=== PATIENT | male | born 1950 | race African-American/Black ===

== ENCOUNTER 2016-08-12 22:36 | Inpatient (IN) | payer MEDICARE, BC ==
[~2016-08-12] VITALS: Ht 177.8 cm; Wt 99.0 kg
[~2016-08-12 22:36] MED LIST: ALLO100T PO; FOLI0.4T2 PO; INSU100I17 SQ; INSU100V8 SQ; LACT10SO PO; LACT10SO26 PO; MAGN400T3 PO; NALT50TA3 PO; OMEP20TA8 PO; OXYC5TAB PO; POT25TAB PO; PROP20TA PO; RIFA550T4 PO; RISP2TAB3 PO; SPIR25TA3 PO; THIA100T8 PO; TRAM50TA PO; [UNRECOGNIZED DRUG - CODE] PO
--- NOTE | 2016-08-12 22:39 | PHYS DOC ---
Past History Past Medical History: Alcoholism, Diabetes, Hypertension, Liver Disease Additional Past Medical Histor: prior hepatic encephalopathy Past Surgical History: Knee Replacement, Other Additional Past Surgical Histo: prior hernia surgery Smoking: Non-smoker Alcohol Use: Sober Drug Use: None Adult General Chief Complaint Chief Complaint: abdominal pain [facility] This is a pleasant 66-year-old male with history of hypertension, end-stage liver disease with ascites history of prior hepatic encephalopathy who presents today with abdominal pain that began earlier this afternoon. He describes the pain as dull and achy over most of his lower abdomen without fevers or chills. It is waxing and waning but never completely resolves. He feels nauseated but he has not vomited. He denies any diarrhea or loose stool. He denies any UTI symptoms or decreased urinary output. He normally gets his care from and has had a recent paracentesis with removal of 10 L of fluid from his abdomen one month ago. Pt. complaints of increased distention tonight. Pt. denies any passage of dark stools. Pt. denies any alcohol intake today. is at bedside. Pt. states he had this presentation before and it usually resolves with time. Pt. states his umbilicus hernia has been the cause of his problems in the past, but no one wants to fix it because of his medical problems with alcohol and alcoholic hepatitis and pancreatitis. He describes his pain as moderate at this time not worse with position, food, bowel movements. Review of Systems Review of Systems Constitutional: Denies fever or chills [] Eyes: Denies change in visual acuity, redness, or eye pain [] HENT: Denies nasal congestion or sore throat [] Respiratory: Denies cough or shortness of breath [] Cardiovascular: No additional information not addressed in HPI [] GI: He does complain of diffuse abdominal pain with nausea without vomiting or diarrhea or loose stools. : Denies dysuria or hematuria he does describe some urgency. Musculoskeletal: Denies back pain or joint pain [] Integument: Denies rash or skin lesions [] Neurologic: Denies headache, focal weakness or sensory changes [] Endocrine: Denies polyuria or polydipsia [] Allergies Allergies Allergies Coded Allergies Type Severity Reaction Last Updated Verified naltrexone Allergy Severe 02/12/16 No Physical Exam Physical Exam Patient's vital signs are blood pressure 136/92 saturations on percent room air afebrile at this time Constitutional: Well developed, he is cachectic but in no acute distress nontoxic in appearance. He is mildly jaundiced. HENT: Normocephalic, atraumatic, bilateral external ears normal, dry mucous membranes no oral exudates, nose normal. [] Eyes: PERRLA, EOMI, conjunctiva normal, no discharge. [] Neck: Normal range of motion, no tenderness, supple, no stridor. [] Cardiovascular:Heart rate regular rhythm, no murmur [] Lungs & Thorax: Bilateral breath sounds clear to auscultation [] Abdomen: His abdomen is distended patient has hyperactive bowel sounds with an umbilical hernia noted nonincarcerated nontender to palpation. Patient has no focal tenderness to palpation no guarding rebound or organomegaly that can be felt on physical exam. Patient has no pulsatile mass. There is no Franklin Valdez sign. Skin: Warm, dry, no erythema, no rash. [] Back: No tenderness, no CVA tenderness. [] Extremities: No tenderness, no cyanosis, no clubbing, ROM intact, no edema. [] Neurologic: Alert and oriented X 3, normal motor function, normal sensory function, no focal deficits noted. [] Psychologic: Affect normal, judgement normal, mood normal. [] Current Patient Data Lab Results Laboratory Tests Test 08/13/16 00:18 08/13/16 00:23 White Blood Count 5.5 x10^3/uL (4.0-11.0) Red Blood Count 3.15 x10^6/uL (4.30-5.70) L Hemoglobin 9.3 g/dL (13.0-17.5) L Hematocrit 28.1 % (39.0-53.0) L Mean Corpuscular Volume 89 fL (79-100) Mean Corpuscular Hemoglobin 30 pg (25-35) Mean Corpuscular Hemoglobin Concent 33 g/dL (31-37) Red Cell Distribution Width 17.3 % (11.5-14.5) H Platelet Count 72 x10^3/uL (140-400) L Neutrophils (%) (Auto) 75 % (31-73) H Lymphocytes (%) (Auto) 11 % (24-48) L Monocytes (%) (Auto) 10 % (0-9) H Eosinophils (%) (Auto) 3 % (0-3) Basophils (%) (Auto) 1 % (0-3) Neutrophils # (Auto) 4.1 x10^3uL (1.8-7.7) Lymphocytes # (Auto) 0.6 x10^3/uL (1.0-4.8) L Monocytes # (Auto) 0.5 x10^3/uL (0.0-1.1) Eosinophils # (Auto) 0.2 x10^3/uL (0.0-0.7) Basophils # (Auto) 0.1 x10^3/uL (0.0-0.2) Sodium Level 141 mmol/L (136-145) Potassium Level 3.3 mmol/L (3.5-5.1) L Chloride Level 108 mmol/L (98-107) H Carbon Dioxide Level 23 mmol/L (21-32) Anion Gap 10 (6-14) Blood Urea Nitrogen 12 mg/dL (8-26) Creatinine 1.6 mg/dL (0.7-1.3) H Estimated GFR (Cockcroft-Gault) 52.3 BUN/Creatinine Ratio 8 (6-20) Glucose Level 76 mg/dL (70-99) Calcium Level 8.6 mg/dL (8.5-10.1) Total Bilirubin 1.6 mg/dL (0.2-1.0) H Aspartate Amino Transferase (AST) 34 U/L (15-37) Alanine Aminotransferase (ALT) 21 U/L (16-63) Alkaline Phosphatase 130 U/L (46-116) H Ammonia 155 mcmol/L (11-34) H Troponin I Quantitative < 0.017 ng/mL (0-0.055) Total Protein 7.9 g/dL (6.4-8.2) Albumin 2.6 g/dL (3.4-5.0) L Albumin/Globulin Ratio 0.5 (1.0-1.7) L Lipase 346 U/L (73-393) Glucose (Fingerstick) 72 mg/dL (70-99) Laboratory Tests Test 08/13/16 00:18 08/13/16 00:23 White Blood Count 5.5 x10^3/uL (4.0-11.0) Red Blood Count 3.15 x10^6/uL (4.30-5.70) L Hemoglobin 9.3 g/dL (13.0-17.5) L Hematocrit 28.1 % (39.0-53.0) L Mean Corpuscular Volume 89 fL (79-100) Mean Corpuscular Hemoglobin 30 pg (25-35) Mean Corpuscular Hemoglobin Concent 33 g/dL (31-37) Red Cell Distribution Width 17.3 % (11.5-14.5) H Platelet Count 72 x10^3/uL (140-400) L Neutrophils (%) (Auto) 75 % (31-73) H Lymphocytes (%) (Auto) 11 % (24-48) L Monocytes (%) (Auto) 10 % (0-9) H Eosinophils (%) (Auto) 3 % (0-3) Basophils (%) (Auto) 1 % (0-3) Neutrophils # (Auto) 4.1 x10^3uL (1.8-7.7) Lymphocytes # (Auto) 0.6 x10^3/uL (1.0-4.8) L Monocytes # (Auto) 0.5 x10^3/uL (0.0-1.1) Eosinophils # (Auto) 0.2 x10^3/uL (0.0-0.7) Basophils # (Auto) 0.1 x10^3/uL (0.0-0.2) Ammonia 155 mcmol/L (11-34) H Glucose (Fingerstick) 72 mg/dL (70-99) EKG EKG [] EKG timed 11:52 PM 08/12/2016 demonstrates normal sinus rhythm with a heart rate of 77 left axis deviation with AK interval of 160 which is normal QRS which is normal 78 QTC is normal at 457. Patient has no ST segment T-wave changes consistent with acute coronary event. He's got a very low voltage on the lateral leads. EKG read by Dr. Cruz Radiology/Procedures Radiology/Procedures [] [address] [place] [id number] IMAGING REPORT Signed PATIENT: JOSE SANCHEZ ACCOUNT: [id number] : 1950 LOCATION: ER AGE: 66 SEX: M EXAM STATUS: REG ER ORD. PHYSICIAN: SOUMYA CRUZ MD REASON: diffuse abdominal pain PROCEDURE: CT ABDOMEN PELVIS WO CONTRAST CT scan of the abdomen and pelvis without contrast 08/12/2016 CLINICAL HISTORY: Diffuse abdominal pain and distention. TECHNIQUE: Unenhanced, contiguous, 3 mm axial sections were obtained through the abdomen and pelvis. One or more of the following individualized dose reduction techniques were utilized for this study: 1. Automated exposure control. 2. Adjustment of the mA and/or kV according to patient size. 3. Use of iterative reconstruction technique. FINDINGS: Comparison study is dated 02/25/2016. Images through the lung bases demonstrate minimal dependent subsegmental atelectasis bilaterally. The liver is small with a nodular contour consistent with cirrhosis. Several rounded low-attenuation lesions are seen scattered throughout both lobes of the liver which measure 5 mm to 1.2 cm in size. They are difficult to evaluate. They may represent cysts. They do not appear significantly changed. The spleen is within normal limits. Fullness of both adrenal glands is seen, left greater than right. Multiple nonobstructing calculi are seen scattered throughout both kidneys. These measure 2 to 5 mm in size. Low-attenuation lesions are seen scattered throughout both kidneys which measure 1 cm to 5.5 cm in size. These likely represent cysts. They are not significantly changed. The main pancreatic duct is dilated. Calcifications are seen throughout the pancreas consistent with chronic pancreatitis. No pancreatic pseudocyst is seen. Scattered atherosclerotic plaque formation is seen involving the abdominal aorta and its branches. The abdominal aorta tapers normally. A large amount of ascites is seen throughout the abdomen which has increased since the previous examination. The small bowel obstruction seen on previous examination has resolved. Air and stool seen throughout the colon. No free air is seen. Images through the pelvis demonstrate the urinary bladder distended with urine. The prostate gland is enlarged likely related to BPH. Calcifications are seen within the pelvis consistent with phleboliths. A large amount of ascites is seen within the pelvis. A large right inguinal hernia is seen which measures 10 cm in transverse diameter. It is distended with ascites. An old compression fracture of the T12 vertebral body is again seen. Degenerative changes are seen involving lower thoracic and throughout the lumbar spine and both hips. IMPRESSION: 1. Findings consistent with cirrhosis of the liver. 2. Chronic pancreatitis. 3. Large amount of ascites is seen throughout the abdomen and pelvis which has increased since the previous examination. Electronically signed by: Johnathon Martell MD (08/12/2016 11:49 PM) [facility] DICTATED AND SIGNED BY: JOHNATHON MARTLEL MD DATE: 08/12/16 2813 CC: SOUMYA CRUZ MD; CHRISTIANA MERAZ MD ~ Course & Med Decision Making Course & Med Decision Making Pertinent Labs and Imaging studies reviewed. (See chart for details) upon presentation patient has spontaneous belly pain and abdominal distention with history of ascites. We'll need to consent immediately for paracentesis and appropriate blood work looking for encephalopathy and end-stage renal disease. Patient will have a troponin completed EKG, CT of abdomen and pelvis after the paracentesis completed. Time is now 11:55 PM Patient tells me that their symptoms given during CC are improved. So far from his lab work his ammonia levels are elevated. Patient will still need paracentesis but he will go to the CAT scan at this time Time is now 12:50 AM Patient tells me that their symptoms given during CC are improved. We reviewed labs and radiology reports with patient and any family at bedside. It is apparent that patient will need to be transferred from our facility to [facility] for continued treatment for his ascites. It is also very obvious that his abdominal pain may be associated with SBP or spontaneous bacteria peritonitis. Patient had a paracentesis done at the bedside. His ascites fluid was sent for cell count and differential, LDH, protein, CBC and staining with culture. Procedure completed by Dr. Cruz at 12:40 AM was consented written and verbal consent by family at bedside. Preparation was chlorhexidine swabs over the right lower abdominal wall. Patient was recently supine position. We used 2% lidocaine with epinephrine in a local injection on the skin approximately 6 mL of lidocaine injected locally. Patient had been prepped with sterile presentation I placed a 22-gauge spinal needle 3 and half centimeter using a Z technique in a caudal position towards midline drying back as I went. Patient had 50 mL of relatively clear ascites fluid in nature drawn from the spinal needle without issue. I took those syringes and filled purple top, green top, anaerobic and aerobic culture and we sent the rest down to lab for continued evaluation. At this point I will give him a dose of lactulose as well as antibiotics empirically and transfer him to [facility]. []Biomedical Engineering Supervisor note: transfer head inspector and center marker called at of the service 12.56 am Consult called back at 12:56 Discussed the case I presented and they agreed with admission. Time of acceptance I spoke with triage nurse will find an accepting physician. They're presently And full in their facility but they will attempt to find a bed for this patient. They really could find he was being taken care of that at length with frequent visits. He will call him back with bed placement. Time is now 1: 05 AM [facility] called back at 1:20 AM I do apologize that they had no accepting physician and no bed space to accept this patient. They stated there are there were unavailable to take him 1. recheck in the morning when necessary was very apologetic. Her this information at 1:22 AM with the family and encouraged him to allow me to transfer him to [facility] with there at least was an interventional radiologist, a GI specialist that could manage his ascites and possible spontaneous bacterial peritonitis as suspected. His ammonia level is also elevated and he was suffering from mild hepatic encephalopathy. Although the family understood the limitations of being at this facility they were adamant that we did not transfer him yet. They have preferred to remain here at [facility] under the care of internal medicine physician and transfer tomorrow if bed space became available. IConsultant note: Paged on-call physician at 1:30 AM Biomedical Engineering Supervisor called at of the service return page at 1:31 AM Consult called back at 1:31 AM Discussed the case I presented and they agreed with admission. Time of acceptance 1:31 AM although accepting physician was somewhat confusing concern that the patient was not going to be older see any definitive therapy like paracentesis secondary to the fact we do not have the cable to hear over the weekends. I told him that I explained this to the family they were happy with limitations we had an willing to wait to see and transfer the morning. Patient was seen within a stable I reviewed laboratory work and plan with internal medicine physician accepting placement in the telemetry floor. Impression: SBP, abdominal pain, hepatic encephalopathy, hypertension. Disposition: Admission to the hospital after diagnostic paracentesis placed on antibiotics and lactulose. For transfer in the morning to once but available. I spent approximately 45-50 minutes working and engaged directly in the patient care providing critical care evaluation this includes but not limited to time spent engaged in work directly related to the individual patients care. I spent time at the bedside, reviewing test results, discussing the case with staff, documenting the medical record and time spent with EMS discussing specific treatment issues when the patient presented and during his evaluation. By the time patient was admitted cefoxitin was ordered urinalysis is still pending at this time Dragon Disclaimer Dragon Disclaimer This chart was dictated in whole or in part using Voice Recognition software in a busy, high-work load, and often noisy Emergency Department environment. It may contain unintended and wholly unrecognized errors or omissions. Departure Departure: Impression: Primary Impression: Ascites Additional Impressions: Cirrhosis Pain in the abdomen Metabolic encephalopathy Disposition: XFER SHT-TRM HOSP Condition: GUARDED Referrals: CHRISTIANA MERAZ MD (PCP) Problem Qualifiers SOUMYA CRUZ MD Aug 12, 2016 22:39
[2016-08-12] MEDS ORDERED: FURO-69 PO (22:57)
[2016-08-12] MEDS ORDERED: HYDROmorphone PF 1 MG/ML DISP.SYRIN IV/SQ PRN (23:00)
[2016-08-12] MEDS ORDERED: 0.9 % SODIUM CHLORIDE 10 ML DISP.SYRIN. IV PRN (23:00)
[2016-08-12] MEDS ORDERED: IV NORMAL SALINE 1,000ML 1,000 ML IV SCH (23:30)
[2016-08-12] MEDS ORDERED: ONDANSETRON PF 4 MG/2 ML VIAL. IV ONE (23:30)
--- NOTE | 2016-08-12 23:52 | RAD ---
CT scan of the abdomen and pelvis without contrast 08/12/2016 CLINICAL HISTORY: Diffuse abdominal pain and distention. TECHNIQUE: Unenhanced, contiguous, 3 mm axial sections were obtained through the abdomen and pelvis. One or more of the following individualized dose reduction techniques were utilized for this study: 1. Automated exposure control. 2. Adjustment of the mA and/or kV according to patient size. 3. Use of iterative reconstruction technique. FINDINGS: Comparison study is dated 02/25/2016. Images through the lung bases demonstrate minimal dependent subsegmental atelectasis bilaterally. The liver is small with a nodular contour consistent with cirrhosis. Several rounded low-attenuation lesions are seen scattered throughout both lobes of the liver which measure 5 mm to 1.2 cm in size. They are difficult to evaluate. They may represent cysts. They do not appear significantly changed. The spleen is within normal limits. Fullness of both adrenal glands is seen, left greater than right. Multiple nonobstructing calculi are seen scattered throughout both kidneys. These measure 2 to 5 mm in size. Low-attenuation lesions are seen scattered throughout both kidneys which measure 1 cm to 5.5 cm in size. These likely represent cysts. They are not significantly changed. The main pancreatic duct is dilated. Calcifications are seen throughout the pancreas consistent with chronic pancreatitis. No pancreatic pseudocyst is seen. Scattered atherosclerotic plaque formation is seen involving the abdominal aorta and its branches. The abdominal aorta tapers normally. A large amount of ascites is seen throughout the abdomen which has increased since the previous examination. The small bowel obstruction seen on previous examination has resolved. Air and stool seen throughout the colon. No free air is seen. Images through the pelvis demonstrate the urinary bladder distended with urine. The prostate gland is enlarged likely related to BPH. Calcifications are seen within the pelvis consistent with phleboliths. A large amount of ascites is seen within the pelvis. A large right inguinal hernia is seen which measures 10 cm in transverse diameter. It is distended with ascites. An old compression fracture of the T12 vertebral body is again seen. Degenerative changes are seen involving lower thoracic and throughout the lumbar spine and both hips. IMPRESSION: 1. Findings consistent with cirrhosis of the liver. 2. Chronic pancreatitis. 3. Large amount of ascites is seen throughout the abdomen and pelvis which has increased since the previous examination. Electronically signed by: Johnathon Martell MD (08/12/2016 11:49 PM) [place] [id number]
[2016-08-13 00:43] LABS: BASO # 0.1 x10^3/uL (0.0-0.2); BASO % 1 % (0-3); EOS # 0.2 x10^3/uL (0.0-0.7); EOS % 3 % (0-3); HEMATOCRIT 28.1 % (39.0-53.0); HEMOGLOBIN 9.3 g/dL (13.0-17.5); LYMPH # 0.6 x10^3/uL (1.0-4.8); LYMPH % 11 % (24-48); MEAN CORPUSCULAR HEMOGLOBIN 30 pg (25-35); MEAN CORPUSCULAR HGB CONC 33 g/dL (31-37); MEAN CORPUSCULAR VOLUME 89 fL (79-100); MONO # 0.5 x10^3/uL (0.0-1.1); MONO % 10 % (0-9); NEUT # 4.1 x10^3uL (1.8-7.7); NEUT % 75 % (31-73); PLATELET COUNT 72 x10^3/uL (140-400); RED BLOOD COUNT 3.15 x10^6/uL (4.30-5.70); RED CELL DISTRIBUTION WIDTH 17.3 % (11.5-14.5); WHITE BLOOD COUNT 5.5 x10^3/uL (4.0-11.0)
[2016-08-13 00:48] LABS: ALBUMIN 2.6 g/dL (3.4-5.0); ALBUMIN/GLOBULIN RATIO 0.5 (1.0-1.7); CALCIUM 8.6 mg/dL (8.5-10.1); CREATININE 1.6 mg/dL (0.7-1.3); GFR 52.3; POTASSIUM 3.3 mmol/L (3.5-5.1); TOTAL BILIRUBIN 1.6 mg/dL (0.2-1.0); TOTAL PROTEIN 7.9 g/dL (6.4-8.2)
[2016-08-13] MEDS ORDERED: LACTULOSE 20 GM/30 ML SOLUTION. ONE (01:05)
--- NOTE | 2016-08-13 01:07 | EKG ---
[address] [address] Test Date: 2016-08-12 Test Time: 23:52:35 Pat Name: JOSE SANCHEZ Department: Room: Gender: M Blogs Manager: : 1950 Requested By: SOUMYA CRUZ Order Number: [id number] Reading MD: Measurements Intervals [place] Rate: 77 P: 0 NE: 160 QRS: -8 QRSD: 78 T: -3 QT: 402 QTc: 457 Interpretive Statements SINUS RHYTHM LEFTWARD AXIS QRS(T) CONTOUR ABNORMALITY CONSIDER ANTEROLATERAL MYOCARDIAL DAMAGE RI6.01 Unconfirmed report No previous ECG available for comparison
[2016-08-13] MEDS ORDERED: LACTULOSE 20 GM/30 ML SOLUTION. PO ONE (01:30)
[2016-08-13] MEDS ORDERED: fentaNYL PF 100 MCG/2 ML VIAL IV PRN (02:00)
[2016-08-13 02:18] VITALS: BP 150/89
[2016-08-13] MEDS: ONDANSETRON PF 4 MG/2 ML VIAL. IV PRN ×2 (02:20→20:48)
--- NOTE | 2016-08-13 02:24 | NUR ---
The patient, JOSE SANCHEZ, 66 y/o, M admitted by INDER ROSARIO MD, was given written information regarding hospital policies, unit procedures and contact persons. Valuables were checked and logged. Will continue to monitor. Addendum: 08/13/16 at 0225 by SHAYE TALBOT RN Ari BARBER.
--- NOTE | 2016-08-13 02:40 | NUR ---
The patient, JOSE SANCHEZ, 66 y/o, M admitted by CHRISTIANA MERAZ MD, was given written information regarding hospital policies, unit procedures and contact persons. Valuables were checked and logged. Will continue to monitor.
[2016-08-13 02:41] LABS: BF CLARITY CLEAR; BF COLOR YELLOW; BF SOURCE PERITONEAL
[2016-08-13 02:42] LABS: BF RBC COUNT 595; BF WBC COUNT 140
[2016-08-13] MEDS ORDERED: IV NORMAL SALINE 100ML 100 ML ONE (03:06)
[2016-08-13 05:11] VITALS: BP 105/79
[2016-08-13 06:46] LABS: BASO # 0.1 x10^3/uL (0.0-0.2); BASO % 1 % (0-3); EOS # 0.2 x10^3/uL (0.0-0.7); EOS % 3 % (0-3); HEMATOCRIT 29.2 % (39.0-53.0); HEMOGLOBIN 9.6 g/dL (13.0-17.5); LYMPH # 0.7 x10^3/uL (1.0-4.8); LYMPH % 12 % (24-48); MEAN CORPUSCULAR HEMOGLOBIN 30 pg (25-35); MEAN CORPUSCULAR HGB CONC 33 g/dL (31-37); MEAN CORPUSCULAR VOLUME 90 fL (79-100); MONO # 0.4 x10^3/uL (0.0-1.1); MONO % 7 % (0-9); NEUT # 4.1 x10^3uL (1.8-7.7); NEUT % 76 % (31-73); PLATELET COUNT 72 x10^3/uL (140-400); RED BLOOD COUNT 3.23 x10^6/uL (4.30-5.70); RED CELL DISTRIBUTION WIDTH 16.9 % (11.5-14.5); WHITE BLOOD COUNT 5.4 x10^3/uL (4.0-11.0)
[2016-08-13 07:04] LABS: ALBUMIN 2.8 g/dL (3.4-5.0); ALBUMIN/GLOBULIN RATIO 0.5 (1.0-1.7); CALCIUM 8.5 mg/dL (8.5-10.1); CREATININE 1.8 mg/dL (0.7-1.3); GFR 45.6; POTASSIUM 3.7 mmol/L (3.5-5.1); TOTAL PROTEIN 8.2 g/dL (6.4-8.2)
[2016-08-13 11:00] VITALS: BP 138/93
--- NOTE | 2016-08-13 11:18 | PDOC1 ---
History of Present Illness Reason for Visit: abdominal pain History of Present Illness C6-year-old female with history of hypertension end-stage liver disease with ascites history of prior hepatic encephalopathy comes in with abdominal pain through the emergency room started earlier in the day the patient has had pain dull aching over his lower abdomen he feels somewhat nauseated but has not vomited. The patient has been seen down at recently had paracentesis with removal of 10 L of fluid although it seems to have re- reaccumulated in his abdomen he has increased distention of the abdominal wall wall he is passage of dark dark stools denies any alcohol use the patient does have an umbilical hernia the patient was admitted for abdominal pain with massive ascites secondary to his end-stage liver disease. Past medical history history of alcoholism diabetes hypertension end-stage liver disease hepatic encephalopathy general malnutrition and failure to thrive past surgical history number nor knee replacement prior hernia surgery social history really S 70 social social has been alcoholic and passes been sober for last several months denies smoking or drug use history unremarkable review of systems patient denies fever chills nausea vomiting and not eating well poor appetite denies chest pain does have abdominal pain with diffuse swelling to the abdomen and marked accumulation of ascites and dark loose stools patient denies any problems on urination generalized joint achiness otherwise unremarkable patient has allergy to naltrexone on exam is a pleasant Afro-Tongan gentleman with oxygen in place blood pressure 130/92 oxygen saturation 90% with oxygen he is well-developed but cachectic mildly jaundiced Head was atraumatic spelled eyes PERRL dry mucous membranes muscle throat dry mucous membranes Neck supple without thyromegaly CV exam was regular sinus rhythm S1-S2 without murmur rub or thrill or extra heart sounds the patient's lungs Lungs clear to auscultation Abdomen distended markedly protuberant fluid lines noted fluid waves make that the tenderness to palpation no again medically was noted Chief Complaint: ABDOMINAL PAIN Allergies: Coded Allergies: naltrexone (Unverified Allergy, Severe, 02/12/16) Family states that this medication has put him in a coma before. adhesive tape (Verified Allergy, Intermediate, 08/12/16) Review of Systems Review Of Systems Fourteen system , review of systems has been reviewed. See HPI for pertinent positives and negative responses, other brown all other systems are negative, non pertinent or non contributory Allergies: Coded Allergies: naltrexone (Unverified Allergy, Severe, 02/12/16) Family states that this medication has put him in a coma before. adhesive tape (Verified Allergy, Intermediate, 08/12/16) Medications Current Medications Hydromorphone HCl (Dilaudid) 1 mg PRN Q15MIN PRN IV/SQ PAIN GREATER THAN 3/10 Last administered on 08/13/16 01:28; Start 08/12/16 at 23:00; Stop 08/13/16 at 22: 59 Sodium Chloride 1,000 ml @ 1,000 mls/hr Q1H IV Last administered on 08/13/16 01:15; Start 08/12/16 at 23:30; Stop 08/13/16 at 00:29; Status DC Sodium Chloride (Normal Saline Flush) 10 ml QSHIFT PRN IV AFTER MEDS AND BLOOD DRAWS; Start 08/12/16 at 23:00 Ondansetron HCl (Zofran) 4 mg 1X ONCE IV Last administered on 08/13/16 01:15; Start 08/12/16 at 23:30; Stop 08/12/16 at 23:31; Status DC Lactulose 20 gm 1X ONCE PO Last administered on 08/13/16 01:27; Start 08/13/16 at 01:30; Stop 08/13/16 at 01:31; Status DC Lactulose 20 gm STK-MED ONCE .ROUTE ; Start 08/13/16 at 01:05; Stop 08/13/16 at 01 :06; Status DC Cefoxitin Sodium 2 gm/Sodium Chloride 100 ml @ 200 mls/hr Q8HRS IV Last administered on 08/13/16 03:20; Start 08/13/16 at 02:30; Stop 08/13/16 at 09:25; Status DC Ondansetron HCl (Zofran) 4 mg PRN Q4HRS PRN IV NAUSEA/VOMITING Last administered on 08/13/16 02:20; Start 08/13/16 at 02:00; Stop 08/14/16 at 01:59 Fentanyl Citrate (Fentanyl 2ml Vial) 50 mcg PRN Q2HR PRN IV SEVERE PAIN; Start 08/13/16 at 02:00; Stop 08/14/16 at 01:59 Cefoxitin Sodium (Mefoxin) 1 gm STK-MED ONCE IV ; Start 08/13/16 at 03:03; Stop 08/13/16 at 03:04; Status DC Sodium Chloride 100 ml @ As Directed STK-MED ONCE .ROUTE ; Start 08/13/16 at 03: 06; Stop 08/13/16 at 03:07; Status DC Ceftriaxone Sodium 2 gm/ Sodium Chloride 100 ml @ 200 mls/hr Q24H IV ; Start at 12:00 Lactulose 20 gm TID PO ; Start 08/13/16 at 14:00 Active Scripts Active Reported Lasix (Furosemide) 20 Mg Tablet 20 Mg PO DAILY Novolog Flexpen (Insulin Aspart) 100 Unit/1 Ml Insuln.pen 1 Unit SQ QIDACHS LAST DOSE GIVEN: DATE: TIME: NEXT DOSE DUE: DATE: TIME: Lactulose 10 Gm/15 Ml Solution 30 Ml PO Q6HRS LAST DOSE GIVEN: DATE: TIME: NEXT DOSE DUE: DATE: TIME: Thiamine Hcl 100 Mg Tablet 100 Mg PO DAILY LAST DOSE GIVEN: DATE: TIME: NEXT DOSE DUE: DATE: TIME: Propranolol Hcl 20 Mg Tablet 20 Mg PO DAILY LAST DOSE GIVEN: DATE: TIME: NEXT DOSE DUE: DATE: TIME: Multi-Betic Tablet (Multivit W-Mn/Fa/Lycop/Lut/Ala) 1 Each Tablet 1 Each PO DAILY LAST DOSE GIVEN: DATE: TIME: NEXT DOSE DUE: DATE: TIME: Lantus (Insulin Glargine,Hum.rec.anlog) 100 Unit/1 Ml Vial 10 Unit SQ HS LAST DOSE GIVEN: DATE: TIME: NEXT DOSE DUE: DATE: TIME: Folic Acid 0.4 Mg Tablet 1 Mg PO DAILY LAST DOSE GIVEN: DATE: TIME: NEXT DOSE DUE: DATE: TIME: Xifaxan (Rifaximin) 550 Mg Tablet 550 Mg PO BID Omeprazole 20 Mg Tablet.dr 40 Mg PO BIDBFRMEAL LAST DOSE GIVEN: DATE: TIME: NEXT DOSE DUE: DATE: TIME: Exam Vital Signs Vital Signs Date Time Temp Pulse Resp B/P (MAP) Pulse Ox O2 Delivery O2 Flow Rate FiO2 08/13/16 08:00 2.0 08/13/16 05:11 97.2 81 20 105/79 (88) 100 Room Air Assessment/Plan Assessment/Plan Neurologically patient alert and oriented 3 baseline voice very faint psychologically basically stable although he does have some probable deterioration from previous histories labs as noted above patient CT scan and pelvis shows cirrhosis of the liver and marked ascites as well as atherosclerosis of the abdominal cavity patient's prostate BPH and findings of chronic pancreatitis pressure and therefore of acute on chronic liver failure severe cerebral Severe cirrhosis of the liver Chronic pancreatitis Large amount of ascites History of alcoholism Plan is to transfer him down to per family's request for GI consultation possible further drainage of his ascites COURSE Allergies Coded Allergies Type Severity Reaction Last Updated Verified naltrexone Allergy Severe 02/12/16 No adhesive tape Allergy Intermediate 08/12/16 Yes Laboratory Tests Test 08/13/16 00:18 08/13/16 00:23 08/13/16 00:47 08/13/16 03:27 White Blood Count 5.5 x10^3/uL (4.0-11.0) Red Blood Count 3.15 x10^6/uL (4.30-5.70) Hemoglobin 9.3 g/dL (13.0-17.5) Hematocrit 28.1 % (39.0-53.0) Mean Corpuscular Volume 89 fL (79-100) Mean Corpuscular Hemoglobin 30 pg (25-35) Mean Corpuscular Hemoglobin Concent 33 g/dL (31-37) Red Cell Distribution Width 17.3 % (11.5-14.5) Platelet Count 72 x10^3/uL (140-400) Neutrophils (%) (Auto) 75 % (31-73) Lymphocytes (%) (Auto) 11 % (24-48) Monocytes (%) (Auto) 10 % (0-9) Eosinophils (%) (Auto) 3 % (0-3) Basophils (%) (Auto) 1 % (0-3) Neutrophils # (Auto) 4.1 x10^3uL (1.8-7.7) Lymphocytes # (Auto) 0.6 x10^3/uL (1.0-4.8) Monocytes # (Auto) 0.5 x10^3/uL (0.0-1.1) Eosinophils # (Auto) 0.2 x10^3/uL (0.0-0.7) Basophils # (Auto) 0.1 x10^3/uL (0.0-0.2) Sodium Level 141 mmol/L (136-145) Potassium Level 3.3 mmol/L (3.5-5.1) Chloride Level 108 mmol/L (98-107) Carbon Dioxide Level 23 mmol/L (21-32) Anion Gap 10 (6-14) Blood Urea Nitrogen 12 mg/dL (8-26) Creatinine 1.6 mg/dL (0.7-1.3) Estimated GFR (Cockcroft-Gault) 52.3 BUN/Creatinine Ratio 8 (6-20) Glucose Level 76 mg/dL (70-99) Calcium Level 8.6 mg/dL (8.5-10.1) Total Bilirubin 1.6 mg/dL (0.2-1.0) Aspartate Amino Transf (AST/SGOT) 34 U/L (15-37) Alanine Aminotransferase (ALT/SGPT) 21 U/L (16-63) Alkaline Phosphatase 130 U/L (46-116) Ammonia 155 mcmol/L (11-34) Troponin I Quantitative < 0.017 ng/mL (0-0.055) Total Protein 7.9 g/dL (6.4-8.2) Albumin 2.6 g/dL (3.4-5.0) Albumin/Globulin Ratio 0.5 (1.0-1.7) Lipase 346 U/L (73-393) Glucose (Fingerstick) 72 mg/dL (70-99) 88 mg/dL (70-99) Body Fluid Source Peritoneal Body Fluid Color Yellow Body Fluid Clarity Clear Body Fluid Nucleated Cells 140 Body Fluid Total RBCs Counted 595 Test 08/13/16 06:34 White Blood Count 5.4 x10^3/uL (4.0-11.0) Red Blood Count 3.23 x10^6/uL (4.30-5.70) Hemoglobin 9.6 g/dL (13.0-17.5) Hematocrit 29.2 % (39.0-53.0) Mean Corpuscular Volume 90 fL (79-100) Mean Corpuscular Hemoglobin 30 pg (25-35) Mean Corpuscular Hemoglobin Concent 33 g/dL (31-37) Red Cell Distribution Width 16.9 % (11.5-14.5) Platelet Count 72 x10^3/uL (140-400) Neutrophils (%) (Auto) 76 % (31-73) Lymphocytes (%) (Auto) 12 % (24-48) Monocytes (%) (Auto) 7 % (0-9) Eosinophils (%) (Auto) 3 % (0-3) Basophils (%) (Auto) 1 % (0-3) Neutrophils # (Auto) 4.1 x10^3uL (1.8-7.7) Lymphocytes # (Auto) 0.7 x10^3/uL (1.0-4.8) Monocytes # (Auto) 0.4 x10^3/uL (0.0-1.1) Eosinophils # (Auto) 0.2 x10^3/uL (0.0-0.7) Basophils # (Auto) 0.1 x10^3/uL (0.0-0.2) Sodium Level 141 mmol/L (136-145) Potassium Level 3.7 mmol/L (3.5-5.1) Chloride Level 108 mmol/L (98-107) Carbon Dioxide Level 22 mmol/L (21-32) Anion Gap 11 (6-14) Blood Urea Nitrogen 12 mg/dL (8-26) Creatinine 1.8 mg/dL (0.7-1.3) Estimated GFR (Cockcroft-Gault) 45.6 BUN/Creatinine Ratio 7 (6-20) Glucose Level 121 mg/dL (70-99) Calcium Level 8.5 mg/dL (8.5-10.1) Total Bilirubin 2.0 mg/dL (0.2-1.0) Aspartate Amino Transf (AST/SGOT) 34 U/L (15-37) Alanine Aminotransferase (ALT/SGPT) 26 U/L (16-63) Alkaline Phosphatase 128 U/L (46-116) Ammonia 83 mcmol/L (11-34) Total Protein 8.2 g/dL (6.4-8.2) Albumin 2.8 g/dL (3.4-5.0) Albumin/Globulin Ratio 0.5 (1.0-1.7) Current Medications Medications (Trade) Dose Ordered Sig/Viridiana Route PRN Reason Start Time Stop Time Status Last Admin Dose Admin Hydromorphone HCl (Dilaudid) 1 mg PRN Q15MIN PRN IV/SQ PAIN GREATER THAN 3/10 08/12/16 23:00 08/13/16 22:59 08/13/16 01:28 Sodium Chloride 1,000 ml @ 1,000 mls/hr Q1H IV 08/12/16 23:30 08/13/16 00:29 DC 08/13/16 01:15 Sodium Chloride (Normal Saline Flush) 10 ml QSHIFT PRN IV AFTER MEDS AND BLOOD DRAWS 08/12/16 23:00 Ondansetron HCl (Zofran) 4 mg 1X ONCE IV 08/12/16 23:30 08/12/16 23:31 DC 08/13/16 01:15 Lactulose 20 gm 1X ONCE PO 08/13/16 01:30 08/13/16 01:31 DC 08/13/16 01:27 Lactulose 20 gm STK-MED ONCE .ROUTE 08/13/16 01:05 08/13/16 01:06 DC Cefoxitin Sodium 2 gm/Sodium Chloride 100 ml @ 200 mls/hr Q8HRS IV 08/13/16 02:30 08/13/16 09:25 DC 08/13/16 03:20 Ondansetron HCl (Zofran) 4 mg PRN Q4HRS PRN IV NAUSEA/VOMITING 08/13/16 02:00 08/14/16 01:59 08/13/16 02:20 Fentanyl Citrate (Fentanyl 2ml Vial) 50 mcg PRN Q2HR PRN IV SEVERE PAIN 08/13/16 02:00 08/14/16 01:59 Cefoxitin Sodium (Mefoxin) 1 gm STK-MED ONCE IV 08/13/16 03:03 08/13/16 03:04 DC Sodium Chloride 100 ml @ As Directed STK-MED ONCE .ROUTE 08/13/16 03:06 08/13/16 03:07 DC Ceftriaxone Sodium 2 gm/ Sodium Chloride 100 ml @ 200 mls/hr Q24H IV 08/13/16 12:00 Lactulose 20 gm TID PO 08/13/16 14:00 Orders Procedure Category Date Status Time Vital Signs ER 08/12/16 Transmitted 23:00 Saline Lock ER 08/12/16 Transmitted 23:00 Cbc W Autodiff LAB 08/12/16 Complete 23:00 Lipase LAB 08/12/16 Complete 23:00 Troponin I LAB 08/12/16 Complete 23:00 Ct Abdomen Pelvis Wo CT 08/12/16 Resulted Contrast 23:00 12 Lead Ekg EKG 08/12/16 Complete 23:00 Comprehensive LAB 08/12/16 Complete Metabolic Panel 23:00 Pulse Oximetry: JORGE 08/12/16 In Process Standing Order 23:00 Hydromorphone Pf PHA 08/12/16 In Process (Dilaudid) 23:00 Iv Normal Saline PHA 08/12/16 Complete 1,000ml (Iv Sodium 23:30 0.9 % Sodium Chloride PHA 08/12/16 In Process (Normal Saline Flu 23:00 Ondansetron Pf PHA 08/12/16 Complete (Zofran) 23:30 Verify Informed JORGE 08/12/16 In Process Consent With P 23:00 Ammonia LAB 08/12/16 Complete 23:00 Paracentesis ER 08/12/16 Transmitted Body Fluid Amylase LAB 08/12/16 In Process 23:49 Body Fluid Ldh LAB 08/12/16 In Process 23:49 Body Fluid Glucose LAB 08/12/16 In Process 23:49 Body Fluid LAB 08/12/16 In Process Protein,Total 23:49 Anaerobic/Aerobic/Gram CLARK 08/13/16 In Process Stain 02:22 Lactulose PHA 08/13/16 Complete 01:30 Lactulose PHA 08/13/16 Complete 01:05 Cefoxitin Sodium PHA 08/13/16 Complete (Mefoxin) 02:30 Code Status CODE 08/13/16 Transmitted 01:56 Vital Signs, Per JORGE 08/13/16 In Process Protocol 01:56 Cardiac DIET 08/13/16 Transmitted Breakfast Ambulate With JORGE 08/13/16 In Process Assistance 01:56 Ondansetron Pf PHA 08/13/16 In Process (Zofran) 02:00 Fentanyl Pf (Fentanyl PHA 08/13/16 In Process 2ml Vial) 02:00 Neuro Check Q 4 Hrs JORGE 08/13/16 In Process 01:56 [place] Order ADT 08/13/16 Transmitted 02:21 Bf Cell Count LAB 08/13/16 Complete 00:47 Admit Orders ADT 08/13/16 Transmitted Blood Culture CLARK 08/13/16 In Process 02:34 Mrsa By Pcr LAB 08/13/16 In Process 02:58 Cbc W Autodiff LAB 08/13/16 Complete 06:00 Comprehensive LAB 08/13/16 Complete Metabolic Panel 06:00 Ammonia LAB 08/13/16 Complete 06:00 Cefoxitin Sodium PHA 08/13/16 Complete (Mefoxin) 03:03 Iv Normal Saline PHA 08/13/16 Complete 100ml (Iv Sodium 03:06 Ua, Cult If Indicated LAB 08/13/16 Logged 03:00 High Risk Dc CONS 08/13/16 Transmitted Readmission 03:36 Apply Darell Stockings JORGE 08/13/16 In Process And Nitesh Wr 03:39 Pneumatic Compression JORGE 08/13/16 In Process Device 03:39 Fall Precautions JORGE 08/13/16 In Process 03:41 Ceftriaxone Sodium PHA 08/13/16 In Process (Rocephin) 12:00 Lactulose PHA 08/13/16 In Process 14:00 Vital Signs Date Time Temp Pulse Resp B/P (MAP) Pulse Ox O2 Delivery O2 Flow Rate FiO2 08/13/16 08:00 2.0 08/13/16 05:11 97.2 81 20 105/79 (88) 100 Room Air CHRISTIANA MERAZ MD Aug 13, 2016 11:18
[2016-08-13] MEDS: LACTULOSE 20 GM/30 ML SOLUTION. PO SCH ×2 (13:51→20:42)
[2016-08-13 15:00] VITALS: BP 143/82
[2016-08-13 20:00] VITALS: BP 110/75
[2016-08-13 23:23] VITALS: BP 115/75
[2016-08-14 06:03] VITALS: BP 118/81
[2016-08-14] MEDS: LACTULOSE 20 GM/30 ML SOLUTION. PO SCH (08:12)
[2016-08-14] MEDS ORDERED: DEXTROSE 50% 25 GM / 50ML DISP.SYRIN. IV PRN (09:30)
[2016-08-14] MEDS ORDERED: INSULIN ASPART 300 UNITS/3 ML INSULN.PEN SQ ONE (10:00)
[2016-08-14 11:10] VITALS: BP 134/81
[2016-08-14] MEDS ORDERED: INSULIN ASPART 300 UNITS/3 ML INSULN.PEN SQ SCH (11:30)
--- NOTE | 2016-08-14 12:26 | PDOC ---
SUBJECTIVE: Still feeling weak and tired abdominal pain OBJECTIVE: Pleasant Afro-Syrian gentleman somewhat cachectic appearing markedly distention of his abdomen Vital Signs: Vital Signs Date Time Temp Pulse Resp B/P (MAP) Pulse Ox O2 Delivery O2 Flow Rate FiO2 08/14/16 11:10 98.1 80 16 134/81 (98) 100 Room Air 08/13/16 21:59 2.0 I & O Intake and Output 08/14/16 07:00 Intake Total 1200 ml Balance 1200 ml Intake Oral 1200 ml # Voids 6 # Bowel Movements 2 Labs: Laboratory Tests Test 08/13/16 00:18 08/13/16 00:23 08/13/16 00:47 08/13/16 02:50 White Blood Count 5.5 x10^3/uL (4.0-11.0) Red Blood Count 3.15 x10^6/uL (4.30-5.70) Hemoglobin 9.3 g/dL (13.0-17.5) Hematocrit 28.1 % (39.0-53.0) Mean Corpuscular Volume 89 fL (79-100) Mean Corpuscular Hemoglobin 30 pg (25-35) Mean Corpuscular Hemoglobin Concent 33 g/dL (31-37) Red Cell Distribution Width 17.3 % (11.5-14.5) Platelet Count 72 x10^3/uL (140-400) Neutrophils (%) (Auto) 75 % (31-73) Lymphocytes (%) (Auto) 11 % (24-48) Monocytes (%) (Auto) 10 % (0-9) Eosinophils (%) (Auto) 3 % (0-3) Basophils (%) (Auto) 1 % (0-3) Neutrophils # (Auto) 4.1 x10^3uL (1.8-7.7) Lymphocytes # (Auto) 0.6 x10^3/uL (1.0-4.8) Monocytes # (Auto) 0.5 x10^3/uL (0.0-1.1) Eosinophils # (Auto) 0.2 x10^3/uL (0.0-0.7) Basophils # (Auto) 0.1 x10^3/uL (0.0-0.2) Sodium Level 141 mmol/L (136-145) Potassium Level 3.3 mmol/L (3.5-5.1) Chloride Level 108 mmol/L (98-107) Carbon Dioxide Level 23 mmol/L (21-32) Anion Gap 10 (6-14) Blood Urea Nitrogen 12 mg/dL (8-26) Creatinine 1.6 mg/dL (0.7-1.3) Estimated GFR (Cockcroft-Gault) 52.3 BUN/Creatinine Ratio 8 (6-20) Glucose Level 76 mg/dL (70-99) Calcium Level 8.6 mg/dL (8.5-10.1) Total Bilirubin 1.6 mg/dL (0.2-1.0) Aspartate Amino Transf (AST/SGOT) 34 U/L (15-37) Alanine Aminotransferase (ALT/SGPT) 21 U/L (16-63) Alkaline Phosphatase 130 U/L (46-116) Ammonia 155 mcmol/L (11-34) Troponin I Quantitative < 0.017 ng/mL (0-0.055) Total Protein 7.9 g/dL (6.4-8.2) Albumin 2.6 g/dL (3.4-5.0) Albumin/Globulin Ratio 0.5 (1.0-1.7) Lipase 346 U/L (73-393) Glucose (Fingerstick) 72 mg/dL (70-99) Body Fluid Source Peritoneal Body Fluid Color Yellow Body Fluid Clarity Clear Body Fluid Nucleated Cells 140 Body Fluid Total RBCs Counted 595 Nasal Screen MRSA (PCR) Negative (Negative) Test 08/13/16 03:27 08/13/16 06:34 08/13/16 20:44 08/14/16 07:52 Glucose (Fingerstick) 88 mg/dL (70-99) 160 mg/dL (70-99) 182 mg/dL (70-99) White Blood Count 5.4 x10^3/uL (4.0-11.0) Red Blood Count 3.23 x10^6/uL (4.30-5.70) Hemoglobin 9.6 g/dL (13.0-17.5) Hematocrit 29.2 % (39.0-53.0) Mean Corpuscular Volume 90 fL (79-100) Mean Corpuscular Hemoglobin 30 pg (25-35) Mean Corpuscular Hemoglobin Concent 33 g/dL (31-37) Red Cell Distribution Width 16.9 % (11.5-14.5) Platelet Count 72 x10^3/uL (140-400) Neutrophils (%) (Auto) 76 % (31-73) Lymphocytes (%) (Auto) 12 % (24-48) Monocytes (%) (Auto) 7 % (0-9) Eosinophils (%) (Auto) 3 % (0-3) Basophils (%) (Auto) 1 % (0-3) Neutrophils # (Auto) 4.1 x10^3uL (1.8-7.7) Lymphocytes # (Auto) 0.7 x10^3/uL (1.0-4.8) Monocytes # (Auto) 0.4 x10^3/uL (0.0-1.1) Eosinophils # (Auto) 0.2 x10^3/uL (0.0-0.7) Basophils # (Auto) 0.1 x10^3/uL (0.0-0.2) Sodium Level 141 mmol/L (136-145) Potassium Level 3.7 mmol/L (3.5-5.1) Chloride Level 108 mmol/L (98-107) Carbon Dioxide Level 22 mmol/L (21-32) Anion Gap 11 (6-14) Blood Urea Nitrogen 12 mg/dL (8-26) Creatinine 1.8 mg/dL (0.7-1.3) Estimated GFR (Cockcroft-Gault) 45.6 BUN/Creatinine Ratio 7 (6-20) Glucose Level 121 mg/dL (70-99) Calcium Level 8.5 mg/dL (8.5-10.1) Total Bilirubin 2.0 mg/dL (0.2-1.0) Aspartate Amino Transf (AST/SGOT) 34 U/L (15-37) Alanine Aminotransferase (ALT/SGPT) 26 U/L (16-63) Alkaline Phosphatase 128 U/L (46-116) Ammonia 83 mcmol/L (11-34) Total Protein 8.2 g/dL (6.4-8.2) Albumin 2.8 g/dL (3.4-5.0) Albumin/Globulin Ratio 0.5 (1.0-1.7) Test 08/14/16 11:00 08/14/16 12:03 Prothrombin Time 17.1 SEC (9.4-11.4) Prothromb Time International Ratio 1.7 (0.9-1.1) Activated Partial Thromboplast Time 32 SEC (23-33) Glucose (Fingerstick) 181 mg/dL (70-99) Physical Exam: On exam alert oriented Afro-Syrian gentleman Lungs diminished but clear severe exam regular sinus rhythm abdomen markedly distended trooper and fluid wave noted consistent with ascites concerns or clubbing cyanosis atrophy of the muscle skeletal system ASSESSMENT: Impression ascites secondary to cirrhosis of the liver alcoholic encephalopathy Alcoholism Problem List: Alcohol intoxication Alcoholic Alcoholic encephalopathy Altered mental status, unspecified Ascites Cirrhosis Cirrhosis of liver Dehydration PLAN: Waiting for a bed assignment at [facility] to be transferred to his physician down there normally takes care of the paracentesis CHRISTIANA MERAZ MD Aug 14, 2016 12:26
[2016-08-14 15:30] VITALS: BP 126/88
--- NOTE | 2016-08-14 17:30 | NUR ---
Discharge Note: JOSE SANCHEZ [address] Discharge instructions and discharge home medications reviewed with Other facility and a copy given. All questions have been answered and understanding verbalized. The following instructions and handouts were given: Med list, Image results, Lab results. Lines and drains: IV saline locked clean, dry, intact. No redness or swelling. Patient discharged to [facility] with Self via EMS
== END 2016-08-14 15:30 | disposition short-term general hospital (02) | DRG 433 ==
LOC: ER 22:36 → ICU 08-13 01:58 → 1 SOUTH 08-13 06:20
PROVIDERS: ADMIT Family Medicine; ATTEND Family Medicine
DX: K70.31 Alcoholic cirrhosis of liver with ascites (principal); K86.1 Other chronic pancreatitis; E44.0 Moderate protein-calorie malnutrition; I10 Essential (primary) hypertension; F10.229 Alcohol dependence with intoxication, unspecified; E86.0 Dehydration; E11.9 Type 2 diabetes mellitus without complications; G31.2 Degeneration of nervous system due to alcohol; N40.0 Benign prostatic hyperplasia without lower urinary tract symptoms; Z96.659 Presence of unspecified artificial knee joint; R62.7 Adult failure to thrive; K72.10 Chronic hepatic failure without coma; K72.90 Hepatic failure, unspecified without coma; Z68.31 Body mass index [BMI] 31.0-31.9, adult; Z88.5 Allergy status to narcotic agent; Z88.8 Allergy status to other drugs, medicaments and biological substances
CPT/HCPCS: 36415; 74176; 80053; 82140; 82150; 82945; 82947; 83615; 83690; 84157; 84484; 85027; 85610; 85730; 87040; 87071; 87075; 87641; 89050; 93005; 96361; 96374; 96375; J0694; J0696; J1170; J1815; J2405; 99291-25; J7030

== ENCOUNTER 2016-09-06 09:35 | Emergency (ER) | payer MEDICARE, BC ==
[~2016-09-06 09:35] MED LIST changes: +FURO-69 PO
--- NOTE | 2016-09-06 10:09 | PHYS DOC ---
General Chief Complaint: NAUSEA/VOMITING/DIARRHEA Stated Complaint: NAUSEA Time Seen by MD: 09:44 Source: patient, old records Exam Limitations: intoxication Problems: History of Present Illness Initial Comments Patient is a 66-year-old male with complicated medical history including end- stage liver disease and alcoholism comes private auto complaining of abdominal pain. ED staff tried to assist the patient from his vehicle as he stated he could not walk due to abdominal distention. Patient has extensive history of liver failure with ascites, he follows with [facility] and routinely gets paracentesis twice monthly. Patient states that the past several days his abdomen has been swelling, today he says it was so swollen he has trouble getting up and ambulating. He has some discomfort but less than prior episodes, he denies fever chills sweats or myalgias he is nauseous but no vomiting or diarrhea. He is jaundiced and intoxicated in the emergency Department but has been cooperative. He wants us to take him to [facility]. Timing/Duration: 1 week, getting worse Severity: severe Modifying Factors: worse with movement, improves with rest Associated Symptoms: nausea/vomiting, other Allergies: Coded Allergies: naltrexone (Unverified Allergy, Severe, 02/12/16) Family states that this medication has put him in a coma before. adhesive tape (Verified Allergy, Intermediate, 08/12/16) Past Medical History Medical History: diabetes, GERD, other (end-stage liver disease, BPH, chronic pancreatitis, hepatic encephalopathy, ascites, alcoholism, diabetes, hypertension, malnutrition) Surgical History: other (knee replacement, herniorrhaphy) Family History Significant Family History: no pertinent family hx Social History Smoker: non-smoker Alcohol: heavy Drugs: none Review of Systems Constitutional: denies chills, denies diaphoresis, denies fever, denies malaise Respiratory: denies cough, denies shortness of breath, denies wheezing Cardiovascular: denies chest pain, denies palpitations, denies syncope Gastrointestinal: see HPI Genitourinary: denies dysuria, denies frequency, denies hematuria Musculoskeletal: denies back pain, denies joint swelling, denies neck pain Skin: see HPI, change in color Psychiatric/Neurological: denies headache, denies numbness, denies paresthesia Physical Exam General Appearance: no apparent distress Eyes: bilateral eye PERRL, bilateral eye EOMI, bilateral eye scleral icterus Ear, Nose, Throat: normal ENT inspection (hard of hearing), normal pharynx Neck: non-tender, supple Gastrointestinal: other (markedly distended/ascitic, generalized tenderness no r/g/mass, BS diminished) Back: no CVA tenderness, no vertebral tenderness Extremities: non-tender, no calf tenderness Neurologic/Psychiatric: doorkeeper II-XII nml as tested, no motor/sensory deficits, oriented x 3, other (lethargic/slurring/loud, intoxicated) Skin: warm/dry, jaundice Orders, Labs, Meds EKG: NSR 88 bpm, diffuse T flattening and low voltage no STEMI. Interpreted by Dr Saleh Chest AP: no acute process PATIENT: JOSE SANCHEZ ACCOUNT: [id number] : 1950 LOCATION: ER AGE: 66 SEX: M EXAM STATUS: REG ER ORD. PHYSICIAN: GOLDEN SALEH DO REASON: ascites, nausea PROCEDURE: CT ABDOMEN PELVIS WO CONTRAST CT of the abdomen and pelvis without contrast, 09/06/2016: History: Abdominal swelling, ascites Noncontrast scans were obtained with multiplanar reconstructions produced. Comparison is made to a study from 08/12/2016. There is minimal linear atelectasis in the lung bases. There is a very large volume of ascites, as also noted on the previous study. The ascites extends into a right inguinal hernia resulting in a large fluid collection in the right scrotum. The volume of ascites appears to be similar to that seen on the previous study. The hepatic margins are irregular compatible with hepatic cirrhosis. There appears be a small cyst in the inferior aspect right lobe of liver. A gallstone is present within the dependent aspect of the gallbladder. There are multiple pancreatic calcifications as well as dilatation of the pancreatic duct. No pancreatic mass is seen. The spleen is unremarkable. Several cysts are present in the kidneys. There are several small medullary calcifications bilaterally. The kidneys show no evidence of obstruction. Aortoiliac calcific plaquing is present. There is no evidence of aneurysm. The bowel loops are displaced centrally by the extensive flank collections of ascites. There is streaky mesenteric edema. There is an umbilical region hernia containing nonobstructed bowel. No free air is evident in the abdomen. Vertebral compression deformities at T12 and T10 are unchanged. IMPRESSION: 1. Hepatic cirrhosis with mesenteric edema and severe ascites. 2. Right inguinal hernia resulting in a large lection of ascites extending into the right scrotum. 3. Cholelithiasis. 4. Nephrolithiasis. 5. Chronic calcific pancreatitis. 6. Umbilical hernia. 7. No significant change since 08/12/2016. PQRS Compliance Statement: One or more of the following individualized dose reduction techniques were utilized for this examination: 1. Automated exposure control 2. Adjustment of the mA and/or kV according to patient size 3. Use of iterative reconstruction technique DICTATED AND SIGNED BY: HEMA WEBBER MD DATE: 09/06/16 1114 CC: CHRISTIANA MERAZ MD; GOLDEN SALEH DO ~ Pertinent labs: Hemoglobin 9.0 normocytic, platelets 39, INR 1.6, BUN 13, creatinine 1.6, glucose 60, calcium 7.8, magnesium 1.6, total bilirubin 3.3, AST 71, albumin 2.9, BNP 347, serum alcohol level 273 The patient received 1 L normal saline IV bolus, banana bag, Zofran 4 mg, cefoxitin intravenously in the emergency department. 1145: Pt sleeping but wakes easily to verbal stimuli, no new c/o 1222: I discussed the patient with triage nurse at the transfer center at per the patient's request. They will contact attending physician and to call me back. 1255: I discussed the patient at length with Dr. Martinez, he accepts the patient for transfer to [facility] for further evaluation and therapeutic paracentesis. He does request that we perform a diagnostic paracentesis if able before patient transfer. 1505: EMS is here to transfer the patient. Due to unforeseen patient volume and procedures in this department I am unable to complete the diagnostic paracentesis prior to patient discharge. Patient remains resting with stable vital signs no new issues. IMPRESSIONS: Colic cirrhosis with end-stage liver disease Ascites with distention and discomfort Alcohol intoxication Normocytic anemia Thrombocytopenia Coagulopathy Moderate protein calorie malnutrition Tobaccoism Departure Time of Disposition: 14:25 Disposition: 02 XFER SHT-TRM HOSP Diagnosis: ascites, cirrhosis, etoh intoxication, Condition: STABLE Additional Instructions: EMS transfer to [facility] for inpatient admission Dr Sandi Abbasi is accepting. GOLDEN SALEH DO Sep 06, 2016 10:09
--- NOTE | 2016-09-06 10:15 | EKG ---
[address] [address] Test Date: 2016-09-06 Test Time: 10:09:57 Pat Name: JOSE SANCHEZ Department: Room: Gender: M Respiratory Therapy Manager: : 1950 Requested By: GOLDEN SALEH Order Number: [id number] Reading MD: Ole Montiel Measurements Intervals [place] Rate: 88 P: -90 WV: 108 QRS: -6 QRSD: 78 T: 4 QT: 406 QTc: 495 Interpretive Statements SINUS RHYTHM LEFTWARD AXIS NON SPECIFIC T ABNORMALITY PROLONGED QT Electronically Signed On 09-08-2016 7:55:07 CDT by Ole Montiel
--- NOTE | 2016-09-06 10:22 | RAD ---
AP chest radiograph 09/06/2016 Indication: Nausea, vomiting and weakness. Comparison: Chest radiograph February 25, 2016. Findings: There is hypoinflation of both lungs with mild bibasilar atelectasis. Cardiac and mediastinal silhouettes are within normal limits. No pleural effusion, pneumothorax or focal consolidation. Impression: Hyperinflation of both lungs with mild bibasilar atelectasis.
[2016-09-06] MEDS: ONDANSETRON PF 4 MG/2 ML VIAL. IV ONE (10:27)
[2016-09-06] MEDS: IV NORMAL SALINE 1,000ML 1,000 ML IV SCH (10:27)
[2016-09-06] MEDS ORDERED: IOHEXOL 300 MG/ML 75 ML VIAL. IV ONE (10:30)
[2016-09-06 10:48] LABS: BASO % 1 % (0-3); EOS % 0 % (0-3); HEMATOCRIT 26.7 % (39.0-53.0); LYMPH # 0.4 x10^3/uL (1.0-4.8); LYMPH % 10 % (24-48); MEAN CORPUSCULAR HEMOGLOBIN 31 pg (25-35); MEAN CORPUSCULAR HGB CONC 34 g/dL (31-37); MEAN CORPUSCULAR VOLUME 91 fL (79-100); MONO # 0.1 x10^3/uL (0.0-1.1); MONO % 3 % (0-9); NEUT # 3.7 x10^3uL (1.8-7.7); NEUT % 86 % (31-73); PLATELET COUNT 39 x10^3/uL (140-400); RED BLOOD COUNT 2.94 x10^6/uL (4.30-5.70); RED CELL DISTRIBUTION WIDTH 21.2 % (11.5-14.5); WHITE BLOOD COUNT 4.3 x10^3/uL (4.0-11.0)
[2016-09-06 10:53] LABS: ALBUMIN 2.9 g/dL (3.4-5.0); ALBUMIN/GLOBULIN RATIO 0.5 (1.0-1.7); CALCIUM 7.8 mg/dL (8.5-10.1); CREATININE 1.6 mg/dL (0.7-1.3); GFR 52.3; MAGNESIUM 1.6 mg/dL (1.8-2.4); POTASSIUM 4.5 mmol/L (3.5-5.1); TOTAL BILIRUBIN 3.3 mg/dL (0.2-1.0); TOTAL PROTEIN 8.3 g/dL (6.4-8.2)
--- NOTE | 2016-09-06 11:26 | RAD ---
CT of the abdomen and pelvis without contrast, 09/06/2016: History: Abdominal swelling, ascites Noncontrast scans were obtained with multiplanar reconstructions produced. Comparison is made to a study from 08/12/2016. There is minimal linear atelectasis in the lung bases. There is a very large volume of ascites, as also noted on the previous study. The ascites extends into a right inguinal hernia resulting in a large fluid collection in the right scrotum. The volume of ascites appears to be similar to that seen on the previous study. The hepatic margins are irregular compatible with hepatic cirrhosis. There appears be a small cyst in the inferior aspect right lobe of liver. A gallstone is present within the dependent aspect of the gallbladder. There are multiple pancreatic calcifications as well as dilatation of the pancreatic duct. No pancreatic mass is seen. The spleen is unremarkable. Several cysts are present in the kidneys. There are several small medullary calcifications bilaterally. The kidneys show no evidence of obstruction. Aortoiliac calcific plaquing is present. There is no evidence of aneurysm. The bowel loops are displaced centrally by the extensive flank collections of ascites. There is streaky mesenteric edema. There is an umbilical region hernia containing nonobstructed bowel. No free air is evident in the abdomen. Vertebral compression deformities at T12 and T10 are unchanged. IMPRESSION: 1. Hepatic cirrhosis with mesenteric edema and severe ascites. 2. Right inguinal hernia resulting in a large lection of ascites extending into the right scrotum. 3. Cholelithiasis. 4. Nephrolithiasis. 5. Chronic calcific pancreatitis. 6. Umbilical hernia. 7. No significant change since 08/12/2016. PQRS Compliance Statement: One or more of the following individualized dose reduction techniques were utilized for this examination: 1. Automated exposure control 2. Adjustment of the mA and/or kV according to patient size 3. Use of iterative reconstruction technique
[2016-09-06 12:03] LABS: PLT ESTIMATE DECREASED (ADEQUATE)
[2016-09-06 12:04] LABS: ANISOCYTOSIS MOD; OVALOCYTES FEW; POIKILOCYTOSIS MOD; SCHISTOCYTES FEW; TARGET CELLS OCC; TEAR DROP CELLS FEW
[2016-09-06] MEDS ORDERED: IV NORMAL SALINE 50ML 50 ML ONE (13:35)
[2016-09-06] MEDS: MVI, ADULT NO.4 WITH VIT K 10 ML, FOLIC ACID 1 MG, THIAMINE 100 MG in IV NORMAL SALINE ... IV ONE ×4 (14:20)
[2016-09-06 15:00] VITALS: BP 100/74
== END 2016-09-06 15:14 | disposition short-term general hospital (02) ==
LOC: ER 09:35
DX: R18.8 Other ascites (principal); K74.60 Unspecified cirrhosis of liver; F10.129 Alcohol abuse with intoxication, unspecified; I12.0 Hypertensive chronic kidney disease with stage 5 chronic kidney disease or end stage renal disease; E11.22 Type 2 diabetes mellitus with diabetic chronic kidney disease; N18.6 End stage renal disease; K21.9 Gastro-esophageal reflux disease without esophagitis; D64.9 Anemia, unspecified; D69.6 Thrombocytopenia, unspecified; K72.90 Hepatic failure, unspecified without coma; E44.0 Moderate protein-calorie malnutrition; Z88.8 Allergy status to other drugs, medicaments and biological substances
CPT/HCPCS: 36415; 71010; 74176; 80053; 82140; 82550; 82947; 83690; 83735; 83880; 84484; 85008; 85027; 85610; 85730; 93005; 96361; 96365; 96368; 96375; 99285; G0480; J0694; J2405; J7030

== ENCOUNTER 2016-09-30 08:49 | Emergency (ER) | payer MEDICARE, BC ==
[~2016-09-30] VITALS: Ht 177.8 cm; Wt 90.7 kg
[2016-09-30] MEDS ORDERED: IV NORMAL SALINE 1,000ML 1,000 ML IV ONE (10:00)
[2016-09-30] MEDS ORDERED: THIAMINE 100 MG TABLET. PO ONE (10:00)
[2016-09-30 10:32] LABS: CALCIUM 8.2 mg/dL (8.5-10.1); GFR 40.4; POTASSIUM 3.9 mmol/L (3.5-5.1)
--- NOTE | 2016-09-30 11:29 | PHYS DOC ---
Past History Past Medical History: Diabetes, Hypertension, Liver Disease Additional Past Medical Histor: prior hepatic encephalopathy Past Surgical History: Other Additional Past Surgical Histo: prior hernia surgery Smoking: Non-smoker Alcohol Use: Heavy Drug Use: None Adult General Chief Complaint Chief Complaint: ABDOMINAL PAIN HPI HPI Patient is a [age] year old [sex] who presents with [] Review of Systems Review of Systems Constitutional: Denies fever or chills [] Eyes: Denies change in visual acuity, redness, or eye pain [] HENT: Denies nasal congestion or sore throat [] Respiratory: Denies cough or shortness of breath [] Cardiovascular: No additional information not addressed in HPI [] GI: Denies abdominal pain, nausea, vomiting, bloody stools or diarrhea [] : Denies dysuria or hematuria [] Musculoskeletal: Denies back pain or joint pain [] Integument: Denies rash or skin lesions [] Neurologic: Denies headache, focal weakness or sensory changes [] Endocrine: Denies polyuria or polydipsia [] Current Medications Current Medications Current Medications Medications (Trade) Dose Ordered Sig/Viridiana Start Time Stop Time Status Last Admin Dose Admin Ondansetron HCl (Zofran Odt) 4 mg 1X ONCE 09/30/16 11:30 09/30/16 11:31 09/30/16 11:21 4 MG Sodium Chloride 1,000 ml @ 1,000 mls/hr 1X ONCE 09/30/16 10:00 09/30/16 10:59 DC 09/30/16 10:00 1,000 MLS/HR Thiamine HCl (Vitamin B-1) 100 mg 1X ONCE 09/30/16 10:00 09/30/16 10:01 DC 09/30/16 10:00 100 MG Allergies Allergies Allergies Coded Allergies Type Severity Reaction Last Updated Verified naltrexone Allergy Severe 02/12/16 No adhesive tape Allergy Intermediate 09/30/16 Yes Physical Exam Physical Exam Constitutional: Well developed, well nourished, no acute distress, non-toxic appearance. [] HENT: Normocephalic, atraumatic, bilateral external ears normal, oropharynx moist, no oral exudates, nose normal. [] Eyes: PERRLA, EOMI, conjunctiva normal, no discharge. [] Neck: Normal range of motion, no tenderness, supple, no stridor. [] Cardiovascular:Heart rate regular rhythm, no murmur [] Lungs & Thorax: Bilateral breath sounds clear to auscultation [] Abdomen: Bowel sounds normal, soft, no tenderness, no masses, no pulsatile masses. [] Skin: Warm, dry, no erythema, no rash. [] Back: No tenderness, no CVA tenderness. [] Extremities: No tenderness, no cyanosis, no clubbing, ROM intact, no edema. [] Neurologic: Alert and oriented X 3, normal motor function, normal sensory function, no focal deficits noted. [] Psychologic: Affect normal, judgement normal, mood normal. [] Current Patient Data Vital Signs Vital Signs Date Time Temp Pulse Resp B/P (MAP) Pulse Ox O2 Delivery O2 Flow Rate FiO2 09/30/16 09:10 97.8 99 18 98 Room Air Lab Results Laboratory Tests Test 09/30/16 10:10 Sodium Level 135 mmol/L (136-145) L Potassium Level 3.9 mmol/L (3.5-5.1) Chloride Level 101 mmol/L (98-107) Carbon Dioxide Level 22 mmol/L (21-32) Anion Gap 12 (6-14) Blood Urea Nitrogen 15 mg/dL (8-26) Creatinine 2.0 mg/dL (0.7-1.3) H Estimated GFR (Cockcroft-Gault) 40.4 Glucose Level 113 mg/dL (70-99) H Calcium Level 8.2 mg/dL (8.5-10.1) L EKG EKG [] Radiology/Procedures Radiology/Procedures [] Course & Med Decision Making Course & Med Decision Making Pertinent Labs and Imaging studies reviewed. (See chart for details) [] Dragon Disclaimer Dragon Disclaimer This chart was dictated in whole or in part using Voice Recognition software in a busy, high-work load, and often noisy Emergency Department environment. It may contain unintended and wholly unrecognized errors or omissions. Departure Departure: Impression: Primary Impression: Ascites Additional Impressions: Alcoholic Mild dehydration Chronic renal insufficiency Disposition: 01 HOME, SELF-CARE Condition: STABLE Referrals: CHRISTIANA MERAZ MD (PCP) Patient Instructions: Ascites, Chronic Renal Insufficiency Additional Instructions: You have recurrent ascites. Ascites is fluid that accumulates in your abdomen is a result of your end-stage liver disease from alcoholism and cirrhosis. It is never to late to stop drinking alcohol. Be sure to keep youself well hydrated plenty of nonalcoholic fluids. Made an appointment for you to get a paracentesis on Monday at 1 PM at [facility]. Be sure to keep this appointment. If you find you're unable to function prior to this procedure on Monday, call your primary care doctor to discuss arranging more immediate follow-up at [facility]. In the future, be proactive about scheduling paracentesis on a regular basis him a as it is typical that ascites re- accumulates in the setting of chronic liver disease which has progressed to the end-stage. Follow-up with your doctor as an outpatient. Problem Qualifiers CORI PLEITEZ MD Sep 30, 2016 11:29
[2016-09-30] MEDS ORDERED: ONDANSETRON ODT 4 MG TAB.RAPDIS PO ONE (11:30)
[2016-09-30] MEDS ORDERED: ACETAMINOPHEN 325 MG TABLET PO ONE (12:00)
[2016-09-30 12:20] VITALS: BP 129/49
== END 2016-09-30 12:35 | disposition home or self-care (01) ==
LOC: ER 08:49
DX: R18.8 Other ascites (principal); E86.0 Dehydration; E11.22 Type 2 diabetes mellitus with diabetic chronic kidney disease; I12.9 Hypertensive chronic kidney disease with stage 1 through stage 4 chronic kidney disease, or unspecified chronic kidney disease; N18.9 Chronic kidney disease, unspecified; F10.10 Alcohol abuse, uncomplicated; Z88.8 Allergy status to other drugs, medicaments and biological substances
CPT/HCPCS: 36415; 80048; 96360; 99284; Q0162; J7030